=== PATIENT | male | born 1945 | race Caucasian/White ===

== ENCOUNTER 2020-05-31 09:25 | Emergency (ER) | payer MEDICARE ==
[2020-05-31] MEDS ORDERED: RINGERS SOLUTION,LACTATED 1,000 ML IV ONE (09:31)
[2020-05-31] MEDS ORDERED: ALBUTEROL SULFATE 0.083% NEB 2.5 MG/3 ML AMPUL NEB ONE (09:35)
[2020-05-31] MEDS ORDERED: MORPHINE SULFATE 10 MG/ML INJ IV ONE (09:36)
[2020-05-31 09:41] LABS: ABSOLUTE BASOPHILS # (AUTO) 0.1 10^3/uL (0.0-0.2); ABSOLUTE LYMPHOCYTES (AUTO) 3.1 10^3/uL (0.5-4.7); ABSOLUTE MONOCYTES (AUTO) 1.1 10^3/uL (0.1-1.4); ABSOLUTE NEUT (AUTO) 14.5 10^3/uL (1.7-8.2); BASOPHILS % (AUTO) 0.6 % (0-2); EOSINOPHILS % (AUTO) 0.1 % (0-6); HEMATOCRIT 30.6 % (37.9-51.0); HEMOGLOBIN 10.2 g/dL (13.5-17.0); LYMPHOCYTES % (AUTO) 16.6 % (13-45); MEAN CORPUSCULAR HEMOGLOBIN 33.2 pg (27.0-33.4); MEAN CORPUSCULAR HGB CONC 33.3 g/dL (32.0-36.0); MEAN CORPUSCULAR VOLUME 100 fl (80-97); MONOCYTES % (AUTO) 5.7 % (3-13); PLATELET COUNT 935 10^3/uL (150-450); RED BLOOD COUNT 3.06 10^6/uL (4.35-5.55); RED CELL DISTRIBUTION WIDTH 21.3 % (11.5-14.0); TOTAL CELLS COUNTED % (AUTO) 100 %; WHITE BLOOD COUNT 18.9 10^3/uL (4.0-10.5)
[2020-05-31 09:51] LABS: INTERNATIONAL RATION (INR) 0.88; PARTIAL THROMBOPLASTIN TIME 25.1 SEC (23.5-35.8); PROTHROMBIN TIME 12.2 SEC (11.4-15.4)
[2020-05-31 09:52] LABS: VENOUS BLOOD HCO3 36.1 mmol/L (20-32); VENOUS BLOOD PH 7.29 (7.30-7.42)
[2020-05-31 09:54] LABS: D-DIMER 1.79 ug/mL (0.00-0.50)
[2020-05-31] MEDS ORDERED: LORAZEPAM INJ 2 MG/1 ML VIAL IV ONE ×3 (09:54→11:23)
[2020-05-31 09:55] LABS: VENOUS BLOOD PCO2 77.5 mmHg (35-63)
[2020-05-31] MEDS ORDERED: METOPROLOL TARTRATE PF/INJ 5 MG/5 ML SDV IV ONE ×3 (09:55→10:14)
[2020-05-31] MEDS ORDERED: ACETAMINOPHEN 325 MG TABLET PO ONE (10:05)
[2020-05-31 10:12] LABS: NT PRO BNP 58 pg/mL (<125)
[2020-05-31 10:16] LABS: ALBUMIN 3.8 g/dL (3.5-5.0); ALKALINE PHOSPHATASE 83 U/L (38-126); ANION GAP 8 (5-19); ASPARTATE AMINO TRANSFERASE 23 U/L (17-59); BILIRUBIN,DIRECT 0.3 mg/dL (0.0-0.4); BILIRUBIN,TOTAL 0.4 mg/dL (0.2-1.3); BLOOD UREA NITROGEN 15 mg/dL (7-20); CALCIUM 9.7 mg/dL (8.4-10.2); CARBON DIOXIDE 37 mmol/L (22-30); CHLORIDE 95 mmol/L (98-107); CREATINE KINASE 46 U/L (55-170); GLUCOSE 135 mg/dL (75-110); POTASSIUM 4.6 mmol/L (3.6-5.0); TOTAL PROTEIN 6.3 g/dL (6.3-8.2)
[2020-05-31 10:19] LABS: TROPONIN I < 0.012 ng/mL
--- NOTE | 2020-05-31 10:27 | RADIOLOGY REPORT (SQ) ---
EXAM DESCRIPTION: CHEST SINGLE VIEW IMAGES COMPLETED DATE/TIME: 05/31/2020 8:56 am REASON FOR STUDY: sobr. COMPARISON: None. EXAM PARAMETERS: NUMBER OF VIEWS: One view. TECHNIQUE: Single frontal radiographic view of the chest acquired. RADIATION DOSE: NA LIMITATIONS: None. FINDINGS: LUNGS AND PLEURA: The lungs are hyperinflated. No focal consolidation or pleural effusion . No pneumothorax. MEDIASTINUM AND HILAR STRUCTURES: No masses. Contour normal. HEART AND VASCULAR STRUCTURES: Heart normal in size. Normal vasculature. BONES: No acute findings. HARDWARE: Right MediPort catheter with tip at the cavoatrial junction. OTHER: No other significant finding. IMPRESSION: Hyperinflated lungs which can be seen with obstructive lung disease. No focal consolida tion. TECHNICAL DOCUMENTATION: JOB ID: [id number] 2010 [employer]- All Rights Reserved Reading location - IP/workstation name: [id number]
[2020-05-31] MEDS: MAGNESIUM SULFATE/D5W 1 GM/100 ML RTUPB IV SCH ×2 (10:33→10:59)
[2020-05-31] MEDS ORDERED: CEFEPIME 2 GM/D5W RTU 2 GM/50 ML RTUPB IV ONE (10:43)
[2020-05-31] MEDS ORDERED: VANCOMYCIN HCL INJ 1000 MG VIAL IV ONE (10:43)
--- NOTE | 2020-05-31 10:45 | ER Document Report ---
Entered by LIDIA RICHARDSON SCRIBE 05/31/20 0941 Acting as scribe for:FRANKLIN SEGOVIA MD ED Respiratory Problem - General Stated Complaint: DIFFICULTLY BREATHING Mode of Arrival: Medic Information source: Emergency Med Personnel Notes: This 75 year old male patient with a history of asthma and COPD (on 4L home O2) brought in by EMS via emergency traffic presents to the ED today with complaints of shortness of breath that started just prior to arrival. Per EMS, patient is from [place] and is here visiting his son. He reportedly didn't bring his medications, but did bring his O2 and became so short of breath this morning that he couldn't speak, so the son called EMS. Upon arrival, patient was tripoding and had a pulse ox of 78% on RA. Patient was subsequently placed on CPAP with increased O2 sats of 96%. He received 2 gm Magnesium, 125 mg Solumedrol, x2 A&A treatments, and LR. EMS reports no concerns for COVID. No chest pain. - Related Data Allergies/Adverse Reactions: clarithromycin [From Biaxin] Allergy (Verified 05/31/20 10:06) codeine Allergy (Verified 05/31/20 10:06) morphine Allergy (Verified 05/31/20 10:06) trazodone Allergy (Verified 05/31/20 10:06) Past Medical History - General Information source: POA - Power of Sewing Machines Salesperson - Son-Fernando, Emergency Med Personnel - Social History Smoking Status: Unknown if Ever Smoked Smoking Education Provided: No Family History: Reviewed & Not Pertinent Patient has suicidal ideation: No Patient has homicidal ideation: No - Past Medical History Cardiac Medical History: Reports: Hx Coronary Artery Disease, Hx Heart Attack - x4 Pulmonary Medical History: Reports: Hx Asthma, Hx COPD EENT Medical History: Reports: Throat - Tumor/mass Neurological Medical History: Reports: Hx Cerebrovascular Accident - x3 Endocrine Medical History: Reports: Hx Diabetes Mellitus Type 2 Review of Systems - Review of Systems Constitutional: No symptoms reported EENT: No symptoms reported Cardiovascular: See HPI. denies: Chest pain Respiratory: See HPI, Short of breath Gastrointestinal: No symptoms reported Genitourinary: No symptoms reported Male Genitourinary: No symptoms reported Musculoskeletal: No symptoms reported Skin: No symptoms reported Hematologic/Lymphatic: No symptoms reported Neurological/Psychological: No symptoms reported -: Yes All other systems reviewed and negative Physical Exam - Vital signs Vitals: Resp Pulse Ox 38 H 100 05/31/20 09:26 05/31/20 09:26 - General General appearance: Alert In distress: None - HEENT Head: Normocephalic, Atraumatic Eyes: Normal Pupils: PERRL - Respiratory Notes: Evaluation on arrival: Patient is tachypneic and 96% on CPAP. After being switched to BiPAP, patient is 100%. Patient has diminished breaths sounds in the lung bases with inspiratory wheezing and paradoxical breathing. - Cardiovascular Rhythm: Regular, Tachycardia Heart sounds: Normal auscultation, S1 appreciated, S2 appreciated Murmur: No Friction rub: No Gallop: None auscultated - Abdominal Inspection: Normal Distension: No distension Bowel sounds: Normal Tenderness: Nontender - Abdomen soft Organomegaly: No organomegaly - Back Back: Normal, Nontender - Extremities General upper extremity: Normal inspection General lower extremity: Normal inspection. No: Edema - Neurological Neuro grossly intact: Yes Orientation: AAOx4 Jimena Coma Scale Eye Opening: Spontaneous Austin Coma Scale Verbal: Oriented Jimena Coma Scale Motor: Obeys Commands Austin Coma Scale Total: 15 - Psychological Associated symptoms: Normal affect, Normal mood - Skin Skin Temperature: Warm Skin Moisture: Dry Skin Color: Normal Course - Re-evaluation Re-evalutation: 05/31/20 10:26 Spoke with the patient's son, Fernando Coronado, who is the patient's power of commercial real estate attorney in the family waiting room. He states that the patient arrived to his home around 1600 yesterday afternoon and is here visiting family. He states that the patient does have his medications in a pill organizer, but he does not have the bottles to verify which medications he is taking and he is unsure of whether or not the patient took them this morning. He reports that the patient's shortness of breath was minor when he first arrived, but became progressively worse throughout the night and the patient woke him up to call EMS. He mentions that the patient appears to have anxiety/panic attacks whenever he has difficulty breathing, similar to the behavior he is presenting with here. He states that the patient's wish is to be DNR, but he doesn't know if there were any papers filed. The son reports that the patient has a "mass in his throat" that is scheduled to be removed this upcoming Monday at the [facility] in [place]. He also reports a history of x4 myocardial infarctions and x3 strokes. He states that x1 of patient's lungs is "30% operational." Patient is allergic to tramadol, morphine and robaxin. Earlier when patient's respiratory status was deteriorating and patient had reached a state of respiratory failure patient son decided that patient should be intubated but no cardiac compressions or any cardiac medication should there be an arrest of rhythm. Therefore patient was ED emergently intubated. 05/31/20 12:[address] Costello, Ice Cream Freezer Assistant. 05/31/20 16:55 Case discussed with regarding evaluating patient for admission to the ICU unit. Patient intubated due to respiratory failure and mass and posterior oropharynx. Dr. Luna examined patient using a glide scope post intubation and noted that the abnormal anatomy of the patient's oropharynx mass did recently has been resected swelling blood and copious mucus in the back of his throat. With that said Dr. Allen Bones belief was that patient needs to have pain tracheostomy if he was to ever be extubated with suction posterior oropharynx with compromised airway. We do not have ear nose and throat presents today in the hospital to create a and perform a tracheostomy. Therefore patient should be transferred to the hospital either in [place] or closer to [place] inasmuch as patient has already arranged plan for having further surgery on his neck at [facility] in [facility] Therefore I called the [facility] [place] and ended up speaking with the [facility] hospitals none of the [facility] in [place]. Patient was excepted as a transfer [facility]. Patient was accepted by Dr. SINGH 05/31/20 17:04 - Vital Signs Vital signs: Temp Pulse Resp BP Pulse Ox 98.4 F 16 103/74 100 05/31/20 09:30 05/31/20 16:46 05/31/20 16:46 05/31/20 16:46 Vital signs show blood pressure 103/74 afebrile respiratory rate 16 pulse ox 100% patient currently is on a Levophed drip to keep systolic blood pressure between 101 10. Patient is intubated with no complications from the intubation chest x-ray remains clear ET tube is in place. - Laboratory Result Diagrams: 05/31/20 09:28 05/31/20 09:28 Laboratory results interpreted by me: 05/31/20 05/31/20 05/31/20 09:28 09:28 09:28 WBC 18.9 H RBC 3.06 L Hgb 10.2 L Hct 30.6 L MCV 100 H RDW 21.3 H Plt Count 935 H Absolute Neuts (auto) 14.5 H D-Dimer 1.79 H Carbonic Acid ABG pH ABG pCO2 ABG pO2 ABG HCO3 ABG Total CO2 ABG O2 Saturation VBG pH VBG pCO2 VBG HCO3 Chloride 95 L Carbon Dioxide 37 H Glucose 135 H Creatine Kinase 46 L 05/31/20 05/31/20 09:36 10:54 WBC RBC Hgb Hct MCV RDW Plt Count Absolute Neuts (auto) D-Dimer Carbonic Acid 1.91 H ABG pH 7.34 L ABG pCO2 63.5 H ABG pO2 71.4 L ABG HCO3 33.8 H ABG Total CO2 35.7 H ABG O2 Saturation 93.0 L VBG pH 7.29 L VBG pCO2 77.5 H* VBG HCO3 36.1 H Chloride Carbon Dioxide Glucose Creatine Kinase Patient has an elevated white blood cell count and elevated PCO2 on arterial blood gas and elevated troponin , and an elevated d-dimer. - Diagnostic Test Radiology reviewed: Image reviewed, Reports reviewed Radiology results interpreted by me: 05/31/20 17:10 Initial chest x-ray shows no acute infiltrate. Repeat chest x-ray today shows ET tube in place again no infiltrate noted some atelectasis noted in the left base. No complications no pneumothorax. - EKG Interpretation by Me Additional EKG results interpreted by me: 05/31/20 17:12 Initial EKG today at 933 shows supraventricular tachycardia with a right bundle branch block and a left posterior fascicular block. Ventricular rate at 163. Repeat EKG at 1552 shows sinus tachycardia rate of 101 intraventricular conduction delay consider atypical right bundle branch block. No acute ST elevations to suggest NV. - Consults Dr. Hema Costello, ICU Ice Cream Freezer Assistant Time consulted: 12:27 Consulted provider: will come to ER Procedures - Intubation Orotracheal Time of Intubation: 12:10 Airway evaluation: Copious secretions, Other Mallampati Classification: Class 3 Medications: Etomidate, Succinylcholine Intubation method: Orotracheal Blade type: Garner Blade size: 4 Equipment used: Glidescope, Bougie ETT size: 7.5 ETT secured at: Lips ETT secured at (cm): 24 Breath Sounds after Intubation: Equal End tidal CO2 confirmed: Yes Ventilator settings: SIMV Tidal volume: 450 FiO2: 35 Respirations: 14 Pressure support: 5 Intubation Complications: Other - Patient's anatomy was not normal in patient's posterior oropharynx inasmuch as patient has a mass present along with soft tissue swelling and along with active bleeding once the friable tissue was touched. Patient also had copious amounts of thick and yellow mucus tenacious. Critical Care Note - Critical Care Note Total time excluding time spent on procedures (mins): 90 - Management patient on arrival due to respiratory distress which continued to deteriorate to respirator y failure despite breathing treatments IV medications including steroids magnesium fluids antibiotics and magnesium. Patient treated for sepsis with IV antibiotics due to low blood pressure also treated with pressor agents Levophed due to systolic blood pressure still below 100 after fluid challenge. management of patient's ventilatory status prior to and after intubation. Discussions with global consumer sector vice president at local hospital and discussions with transfer team in the [facility] in [facility]. Discharge - Discharge Clinical Impression: Respiratory failure, Neck malignant neoplasm, Elevated troponin I level, Do not resuscitate status except for intubation Acute respiratory failure Qualifiers: Respiratory failure complication: unspecified whether with hypoxia or hypercapnia Qualified Code(s): J96.00 - Acute respiratory failure, unspecified whether with hypoxia or hypercapnia COPD (chronic obstructive pulmonary disease) Qualifiers: COPD type: emphysema Emphysema type: centrilobular Qualified Code(s): J43.2 - Centrilobular emphysema Condition: Critical Disposition: Tertiary-Other I personally performed the services described in the documentation, reviewed and edited the documentation which was dictated to the scribe in my presence, and it accurately records my words and actions.
[2020-05-31 10:51] LABS: AMORPHOUS SEDIMENT,URINE TRACE /HPF; APPEARANCE,URINE CLOUDY; BILIRUBIN,URINE NEGATIVE (NEGATIVE); COLOR,URINE YELLOW; GLUCOSE, URINE NEGATIVE (NEGATIVE); KETONES,URINE NEGATIVE (NEGATIVE); LEUKOCYTE ESTERASE,URINE NEGATIVE (NEGATIVE); NITRITE,URINE NEGATIVE (NEGATIVE); PROTEIN,URINE NEGATIVE (NEGATIVE); URINE SPECIFIC GRAVITY 1.012; UROBILINOGEN,URINE NEGATIVE mg/dL (<2.0)
[2020-05-31 11:03] LABS: URINE AMPHETAMINES SCREEN NEGATIVE; URINE BARBITURATES SCREEN NEGATIVE; URINE BENZODIAZEPINES SCREEN NEGATIVE; URINE COCAINE SCREEN NEGATIVE; URINE MARIJUANA (THC) SCREEN NEGATIVE; URINE METHADONE SCREEN NEGATIVE; URINE PHENCYCLIDINE SCREEN NEGATIVE
[2020-05-31 11:07] LABS: ARTERIAL BLOOD BASE EXCESS 6.6 mmol/L; ARTERIAL BLOOD FIO2 50%; ARTERIAL BLOOD H2CO3 1.91 mmol/L (1.05-1.35); ARTERIAL BLOOD HCO3 33.8 mmol/L (20-24); ARTERIAL BLOOD PCO2 63.5 mmHg (35-45); ARTERIAL BLOOD PH 7.34 (7.35-7.45); ARTERIAL BLOOD PO2 71.4 mmHg (80-100); ARTERIAL BLOOD TOTAL CO2 35.7 mmol/L (23-27)
[2020-05-31] MEDS ORDERED: ETOMIDATE INJ/PF 20 MG/10 ML SDV IV ONE ×2 (11:41→12:20)
[2020-05-31] MEDS ORDERED: MIDAZOLAM 2 MG/2 ML INJ ONE (11:43)
[2020-05-31] MEDS: MIDAZOLAM HCL 50 MG/100 ML RTUINJ IV PRN ×2 (12:15→19:45)
[2020-05-31] MEDS ORDERED: SUCCINYLCHOLINE CHLORIDE INJ 200 MG/10 ML VIAL IV ONE (12:19)
[2020-05-31] MEDS ORDERED: MIDAZOLAM 2 MG/2 ML INJ IV ONE (12:21)
--- NOTE | 2020-05-31 13:02 | RADIOLOGY REPORT (SQ) ---
EXAM DESCRIPTION: CHEST SINGLE VIEW IMAGES COMPLETED DATE/TIME: 05/31/2020 12:37 pm REASON FOR STUDY: Post et tube intubation COMPARISON: Chest x-ray 05/31/2020 at 09:42 hours. EXAM PARAMETERS: NUMBER OF VIEWS: One view TECHNIQUE: Single frontal supine radiograph of the chest on 05/31/2020 at 12:31 hours. RADIATION DOSE: N/A LIMITATIONS: None. FINDINGS: TEMPORARY SUPPORT DEVICES:ETT in expected location. There is a right-sided Port-A-Cath with the tip overlying the region of the atriocaval junction. LUNGS AND PLEURA: There is mild atelectasis at the at left lung base. No sizable pleural effusion or obvious pneumothorax on this supine view. MEDIASTINUM AND HILAR STRUCTURES: No masses. Contour normal. HEART AND VASCULAR STRUCTURES: Heart size normal. No overt vascular congestion. Atherosclerotic salbador cifications are noted at the thoracic aorta. BONES: No acute findings. IMPRESSION: 1. Mild atelectasis at the left lung base. 2. Life-support devices as described above. TECHNICAL DOCUMENTATION: JOB ID: [id number] 2010 [employer] All Rights Reserved Reading location - IP/workstation name: [email or web address]
[2020-05-31] MEDS ORDERED: DEXTROSE 5%-WATER 250 ML with NOREPINEPHRINE BITARTRATE 4 MG IV PRN ×2 (13:16)
[2020-05-31] MEDS ORDERED: NOREPINEPHRINE BITARTRATE INJ/PF 4 MG/4 ML SDV IV ONE ×2 (15:40→20:19)
--- NOTE | 2020-05-31 15:42 | PDOC CRITICAL CARE PROG REPORT ---
General Date:: 05/31/20 ICU Day:: 1 Ventilator Day:: 1 Hospital Day:: 1 Resuscitation Status: Full Code Events in the past 12 to 24 Hours:: Intubated for SOB and airway compression. Review of systems relevant to events:: Pulmonary. Reason for ICU Addmission:: Intubated - Medications: Medications reviewed and adjusted accordingly: Yes Vasopressors:: None Sedation:: Diprivan Physical Exam Vital Signs: Temp Pulse Resp BP Pulse Ox 98.4 F 19 88/57 L 100 05/31/20 09:30 05/31/20 15:16 05/31/20 15:16 05/31/20 15:16 Intake & Output 05/30/20 05/31/20 06/01/20 06:59 06:59 06:59 Intake Total 1511 Balance 1511 Weight 75 kg Weight/Height Weight 75 kg Height 5 ft 10 in General appearance: PRESENT: no acute distress Head exam: PRESENT: atraumatic, normocephalic Eye exam: PRESENT: conjunctiva pink, EOMI, PERRLA. ABSENT: scleral icterus Ear exam: PRESENT: normal external ear exam Mouth exam: PRESENT: moist, tongue midline Throat exam: PRESENT: post pharyngeal erythema, other - Bloody [id number] Neck exam: PRESENT: other - neck abnormality from the outside. Respiratory exam: PRESENT: clear to auscultation aj, rhonchi. ABSENT: rales, wheezes Cardiovascular exam: PRESENT: RRR. ABSENT: diastolic murmur, rubs, systolic murmur GI/Abdominal exam: PRESENT: normal bowel sounds, soft. ABSENT: distended, guarding, mass, organolmegaly, rebound, tenderness Rectal exam: PRESENT: deferred Gentrourinary exam: PRESENT: indwelling catheter Extremities exam: PRESENT: full ROM. ABSENT: calf tenderness, clubbing, pedal edema Neurological exam: PRESENT: other - Sedated. Skin exam: PRESENT: dry, intact, warm. ABSENT: cyanosis, rash Tubes/Lines: PRESENT: Endotracheal Tube Laboratory/Radiographs Laboratory Results: 05/31/20 09:28 05/31/20 09:28 05/31/20 05/31/20 05/31/20 09:28 09:28 09:28 WBC 18.9 H RBC 3.06 L Hgb 10.2 L Hct 30.6 L MCV 100 H MCH 33.2 MCHC 33.3 RDW 21.3 H Plt Count 935 H Seg Neutrophils % 77.0 Carbonic Acid HCO3/H2CO3 Ratio ABG pH ABG pCO2 ABG pO2 ABG HCO3 ABG O2 Saturation ABG Base Excess VBG pH VBG pCO2 VBG HCO3 VBG Base Excess FiO2 Sodium 139.9 Potassium 4.6 Chloride 95 L Carbon Dioxide 37 H Anion Gap 8 BUN 15 Creatinine 0.80 Est GFR ( Amer) > 60 Glucose 135 H Lactic Acid 1.8 Calcium 9.7 Total Bilirubin 0.4 AST 23 Alkaline Phosphatase 83 Total Protein 6.3 Albumin 3.8 Urine Color Urine Appearance Urine pH Ur Specific Hope Urine Protein Urine Glucose (UA) Urine Ketones Urine Blood Urine Nitrite Ur Leukocyte Esterase Urine WBC (Auto) Urine RBC (Auto) 05/31/20 05/31/20 05/31/20 09:36 10:30 10:54 WBC RBC Hgb Hct MCV MCH MCHC RDW Plt Count Seg Neutrophils % Carbonic Acid 1.91 H HCO3/H2CO3 Ratio 17:1 ABG pH 7.34 L ABG pCO2 63.5 H ABG pO2 71.4 L ABG HCO3 33.8 H ABG O2 Saturation 93.0 L ABG Base Excess 6.6 VBG pH 7.29 L VBG pCO2 77.5 H* VBG HCO3 36.1 H VBG Base Excess 7.0 FiO2 50% Sodium Potassium Chloride Carbon Dioxide Anion Gap BUN Creatinine Est GFR ( Amer) Glucose Lactic Acid Calcium Total Bilirubin AST Alkaline Phosphatase Total Protein Albumin Urine Color YELLOW Urine Appearance CLOUDY Urine pH 7.0 Ur Specific Hope 1.012 Urine Protein NEGATIVE Urine Glucose (UA) NEGATIVE Urine Ketones NEGATIVE Urine Blood NEGATIVE Urine Nitrite NEGATIVE Ur Leukocyte Esterase NEGATIVE Urine WBC (Auto) 3 Urine RBC (Auto) 1 05/31/20 13:34 WBC RBC Hgb Hct MCV MCH MCHC RDW Plt Count Seg Neutrophils % Carbonic Acid HCO3/H2CO3 Ratio ABG pH ABG pCO2 ABG pO2 ABG HCO3 ABG O2 Saturation ABG Base Excess VBG pH VBG pCO2 VBG HCO3 VBG Base Excess FiO2 Sodium Potassium Chloride Carbon Dioxide Anion Gap BUN Creatinine Est GFR ( Amer) Glucose Lactic Acid 1.8 Calcium Total Bilirubin AST Alkaline Phosphatase Total Protein Albumin Urine Color Urine Appearance Urine pH Ur Specific Hope Urine Protein Urine Glucose (UA) Urine Ketones Urine Blood Urine Nitrite Ur Leukocyte Esterase Urine WBC (Auto) Urine RBC (Auto) 05/31/20 05/31/20 05/31/20 09:28 09:28 13:34 Creatine Kinase 46 L Troponin I < 0.012 0.031 NT-Pro-B Natriuret Pep 58 Impressions: Chest X-Ray 05/31/20 12:16 IMPRESSION: 1. Mild atelectasis at the left lung base. 2. Life-support devices as described above. EKG: SR, RBBB. All labs, radiographs, diagnostic studies and EKGs were personally reviewed: Yes In addition, reports of radiographic and diagnostic studies were read: Yes Assessment and Plan - Diagnosis (1) Acute respiratory failure Qualifiers: Respiratory failure complication: unspecified whether with hypoxia or hypercapnia Qualified Code(s): J96.00 - Acute respiratory failure, unspecified whether with hypoxia or hypercapnia Is this a current diagnosis for this admission?: Yes Plan: This patient's shortnass of breath has bee present for several days. He was visiting son and grandson from [facility] where he is to undergo surgery for a neck mass said to be cancer. The type of which the son does not know. Surgery Monday-in 2 days. His shortness of breath was descibed by the son as probably from the neck area. He does have COPD on 4 L o2 at home. No wheezing or stridor. How much from neck CA and how much from COPD is not clear. He was intubated with much difficulty and little normal anatomy. I looked with a glidescope and saw only thick bloody secretions, no normal anatomy. He is best served at a facility where a tracheotomy can be performed and definitive surgery. Dr. Holden will try to get him to an ICU at [facility]. (2) COPD (chronic obstructive pulmonary disease) Qualifiers: COPD type: emphysema Emphysema type: centrilobular Qualified Code(s): J43.2 - Centrilobular emphysema Is this a current diagnosis for this admission?: Yes Plan: Currently no active wheezing. (3) Neck malignant neoplasm Is this a current diagnosis for this admission?: Yes Plan: He is best served at the facility that has already been planning surgery and ad juvent CTX in [place]. Plan Summary: Plan to transfer [place] [facility]. Critical Time Critical Time (minutes): 40 Level of Care: ICU Anticipated discharge: [facility] Anticipated DC Timeframe: within 24 hours -: 1. The care of a critical patient is a dynamic process. This note is a human resources representative synopsis but static in nature. The timeframe for treatments given in order is not necessarily the actual time these treatments may have been done. 2. This patient requires critical care secondary to ongoing requirements for therapy not offered or safe outside the critical care environment. Transfer to a lower level of care will result in altered life or limb morbidity and mortality. 3. Multidisciplinary rounds completed. 4. ABCDE bundle addressed.
[2020-05-31] MEDS ORDERED: DEXTROSE 5%-1/2 NORMAL SALINE 1,000 ML IV PRN (17:46)
--- NOTE | 2020-05-31 18:37 | EKG REPORT ---
SEVERITY:- ABNORMAL ECG - SINUS TACHYCARDIA IVCD, CONSIDER ATYPICAL RBBB : Confirmed by: Blas Lawrence MD 31-May-2020 18:36:35
--- NOTE | 2020-05-31 18:39 | EKG REPORT ---
SEVERITY:- ABNORMAL ECG - SUPRAVENTRICULAR TACHYCARDIA LIKELY A FLUTTER WITH 2:1 AVB RBBB AND LPFB : Confirmed by: Blas Lawrence MD 31-May-2020 18:39:05
[2020-05-31 19:34] VITALS: BP 125/75
== END 2020-05-31 20:49 | disposition short-term general hospital (02) ==
LOC: ER 09:25
PROC: 0BH17EZ Insertion of Endotracheal Airway into Trachea, Via Natural or Artificial Opening (ICD-10-PCS; principal; 2020-05-31)
DX: J96.00 Acute respiratory failure, unspecified whether with hypoxia or hypercapnia (principal); C76.0 Malignant neoplasm of head, face and neck; R79.89 Other specified abnormal findings of blood chemistry; R06.82 Tachypnea, not elsewhere classified; J44.9 Chronic obstructive pulmonary disease, unspecified; Z99.81 Dependence on supplemental oxygen; Z88.1 Allergy status to other antibiotic agents; Z88.8 Allergy status to other drugs, medicaments and biological substances; I25.10 Atherosclerotic heart disease of native coronary artery without angina pectoris; I25.2 Old myocardial infarction; E11.9 Type 2 diabetes mellitus without complications
CPT/HCPCS: 93005; 96376; 94640; 99291; 96361; 51702; 96375; 96365; 96366; 96367; 96368; 36415; 87040; 82803 ×2; 82550; 83605; 85025; 85610; 85730; 87077; 80053; 81001; 84484; 87186; 80307; 85379; 87150 ×26; 83880; 71045; 94660; 93010; 31500; A9270 ×2; J2250 ×2; J3490 ×2; J2060; J3475; J7060; J7120; J3370; J0692; J0330; J7613